=== PATIENT | female | born 1990 | race Caucasian/White ===

== ENCOUNTER → 2021-01-28 09:05 | Outpatient (BNVA) | payer MEDICAID, SELFPAY | PROVIDERS: Family Provider Family Medicine; PCP Family Medicine; Visit Provider Nurse Practitioner Women's Health | DX: N92.6 Irregular menstruation, unspecified (principal) | CPT/HCPCS: 81025 ==

== ENCOUNTER → 2021-02-25 15:26 | Outpatient (BNVA) | payer MEDICAID, SELFPAY | PROVIDERS: Family Provider Family Medicine; PCP Family Medicine; Visit Provider Obstetrics & Gynecology | DX: Z34.01 Encounter for supervision of normal first pregnancy, first trimester | CPT/HCPCS: 80307; 81000; 84443; 85027; 86592; 86762; 86803; 86850; 86900; 87086; 87340 ==

== ENCOUNTER → 2021-03-04 09:13 | Outpatient (BNVA) | payer MEDICAID, SELFPAY | PROVIDERS: Family Provider Family Medicine; PCP Family Medicine; Visit Provider Obstetrics & Gynecology | DX: Z34.80 Encounter for supervision of other normal pregnancy, unspecified trimester (principal) | CPT/HCPCS: 81000; 87491; 87591; 88175 ==

== ENCOUNTER → 2021-04-10 10:50 | Outpatient (BNVA) | payer MEDICAID, SELFPAY | PROVIDERS: Family Provider Family Medicine; PCP Family Medicine; Visit Provider Nurse Practitioner Women's Health | DX: Z34.80 Encounter for supervision of other normal pregnancy, unspecified trimester (principal) | CPT/HCPCS: 81000 ==

== ENCOUNTER → 2021-05-06 09:01 | Outpatient (BNVA) | payer MEDICAID, SELFPAY | PROVIDERS: Family Provider Family Medicine; PCP Family Medicine; Visit Provider Obstetrics & Gynecology | DX: Z34.80 Encounter for supervision of other normal pregnancy, unspecified trimester (principal) | CPT/HCPCS: 81000 ==

== ENCOUNTER → 2021-05-27 13:13 | Outpatient (BNVA) | payer MEDICAID, SELFPAY | PROVIDERS: Family Provider Family Medicine; PCP Family Medicine; Visit Provider Nurse Practitioner Women's Health | DX: Z34.01 Encounter for supervision of normal first pregnancy, first trimester (principal) | CPT/HCPCS: 81000 ==

== ENCOUNTER → 2021-06-24 13:02 | Outpatient (BNVA) | payer MEDICAID, SELFPAY | PROVIDERS: Family Provider Family Medicine; PCP Family Medicine; Visit Provider Obstetrics & Gynecology | DX: Z34.01 Encounter for supervision of normal first pregnancy, first trimester (principal) | CPT/HCPCS: 81000; 82950; 85027 ==

== ENCOUNTER → 2021-07-08 12:06 | Outpatient (BNVA) | payer MEDICAID, SELFPAY | PROVIDERS: Family Provider Family Medicine; PCP Family Medicine; Visit Provider Obstetrics & Gynecology | DX: Z34.80 Encounter for supervision of other normal pregnancy, unspecified trimester (principal) | CPT/HCPCS: 81000 ==

== ENCOUNTER → 2021-07-22 09:58 | Outpatient (BNVA) | payer MEDICAID, SELFPAY | PROVIDERS: Family Provider Family Medicine; PCP Family Medicine; Visit Provider Obstetrics & Gynecology | DX: Z34.90 Encounter for supervision of normal pregnancy, unspecified, unspecified trimester (principal) | CPT/HCPCS: 81000 ==

== ENCOUNTER → 2021-08-05 11:25 | Outpatient (BNVA) | payer MEDICAID, SELFPAY | PROVIDERS: Family Provider Family Medicine; PCP Family Medicine; Visit Provider Nurse Practitioner Women's Health | DX: Z34.90 Encounter for supervision of normal pregnancy, unspecified, unspecified trimester (principal) | CPT/HCPCS: 81000 ==

== ENCOUNTER → 2021-08-19 13:19 | Outpatient (BNVA) | payer MEDICAID, SELFPAY | PROVIDERS: Family Provider Family Medicine; Visit Provider Obstetrics & Gynecology | DX: Z34.90 Encounter for supervision of normal pregnancy, unspecified, unspecified trimester (principal) | CPT/HCPCS: 81000; 85027; 87081 ==

== ENCOUNTER → 2021-08-26 11:45 | Outpatient (BNVA) | payer MEDICAID, SELFPAY | PROVIDERS: Visit Provider Obstetrics & Gynecology | DX: Z34.90 Encounter for supervision of normal pregnancy, unspecified, unspecified trimester (principal) | CPT/HCPCS: 81000 ==

== ENCOUNTER 2021-08-29 11:00 | Inpatient (IN) | payer MEDICAID, SELFPAY ==
[2021-08-29] VITALS (62 sets, daily range): BP systolic 96–159; BP diastolic 53–85; PULSE 69–125; RESP 16–18; TEMP 36.1–36.8; O2SAT 92–100; BMI 21.8
[2021-08-29 11:32] LABS: Actim Prom Positive
--- NOTE | 2021-08-29 11:40 | PM.OPHPUD ---
Labor & Delivery H&P Update Date of Procedure: August 29, 2021 Date H&P Performed: 08/26/21 H&P update information: I have reviewed H&P completed within last 30 days, I have examined patient prior to procedure and Changes to prior documentation as noted here Changes to previous documentation: The patient presents with comlaints of SROM at 0545 this am. Cervix is now 360/-3 Admission Diagnosis:
[2021-08-29 12:08] LABS: Basophils % 0.4 %; Eosinophils % 0.1 %; Hematocrit 37.4 % (37.0-47.0); Hemoglobin 12.5 g/dL (11.5-15.3); Lymphocytes # 1.5 10^3/uL (0.8-4.8); Lymphocytes % 21.8 %; Mean Corpuscular HGB Conc 33.4 g/dL (30.0-36.0); Mean Corpuscular Hemoglobin 31.3 pg (28.0-34.0); Mean Corpuscular Volume 93.5 fl (81-99); Mean Platelet Volume 10.6 fL (7.4-10.4); Monocytes # 0.4 10^3/uL (0.2-0.9); Monocytes % 5.8 %; Neutrophils # 4.95 10^3/uL (1.8-7.7); Neutrophils % 71.5 %; Nucleated Red Blood Cells % 0 %; Platelet Count 236 10^3/cmm (130-400); White Blood Count 6.9 10^3/uL (4.0-10.0)
[2021-08-29] MEDS: oxytocin 30 UNIT/500 ML BAG IV (13:59)
[2021-08-29] MEDS: dextrose 5%-lactated ringers 1,000 ML 125 ML IV (14:00)
--- NOTE | 2021-08-29 14:12 | PM.OPHPUD ---
Labor & Delivery H&P Update Date of Procedure: August 29, 2021 Date H&P Performed: 08/26/21 Admission Diagnosis: Related Problem List Diagnoses (1) Refusal of blood transfusions as patient is Cheondoism: (2) Supervision of normal : (3) Anxiety: (4) PROM (premature rupture of membranes):
[2021-08-29] MEDS: lactated ringers 1,000 ML 999 ML IV (15:56)
--- NOTE | 2021-08-29 16:12 | ANES.PREANE2 ---
Pre-Anesthetic Assessment Height/Weight: Height 1.63 m Weight 57.606 kg Temp Pulse Resp BP Pulse Ox 97.9 F 93 16 106/66 97 08/29/21 14:27 08/29/21 16:07 08/29/21 11:06 08/29/21 16:07 08/29/21 16:06 Familial anesthetic complications: None Was Beta Nancy taken within 24 hours: N/A Was Clonidine taken within 24 hours: N/A Social No alcohol and No tobacco Exam alert, oriented x 3, clear to auscultation bilaterally and regular rate & rhythm Airway Submandibular: within normal limits Cervical ROM: within normal limits Mallampati: Class II Dentition: full History/ROS No significant history except as noted Neuropsych Anxiety Anesthetic Plan ASA status: 2 Anesthesia: Regional (specify below) (Labor epidural) Other Pertinent Information Uatsdin Medications/Allergies Home Medications Medication Instructions Recorded Confirmed Last Taken Type omega-3 acid ethyl esters 1 gram 2 cap PO DAILY cap 02/25/21 08/26/21 Unknown History capsule prenat.vits,jama,[id number] 1 tab PO DAILY 02/25/21 08/26/21 Unknown History ascorbic acid (vitamin C) 500 mg mg PO 05/27/21 08/26/21 Unknown History capsule cholecalciferol (vitamin D3) 10 10 mcg PO DAILY 05/27/21 08/26/21 Unknown History mcg (400 unit) capsule folic acid 0.8 mg capsule 0.8 mg PO DAILY 05/27/21 08/26/21 Unknown History escitalopram oxalate 10 mg tablet 10 mg PO DAILY #90 tab 06/24/21 08/26/21 Unknown Rx Allergies Allergy/AdvReac Type Severity Reaction Status Date / Time No Known Allergies Allergy Verified 08/26/21 12:26 Current Medications Generic Name Dose Route Start Last Admin Trade Name Freq PRN Reason Stop Dose Admin Dextrose/Lactated Ringer's 1,000 mls @ 125 mls/hr 08/29/21 11:15 08/29/21 14:00 Dextrose 5%-Lactated Ringers IV 125 mls/hr .Q8H TAMIKA Administration Oxytocin 30 unit in 500 mls @ 1 mls/hr 08/29/21 13:45 08/29/21 15:13 Pitocin IV 7 milliunit/min .Q24H TAMIKA 7 mls/hr Titration Protocol 1 MILLIUNIT/MIN Ropivacaine 200 mg in 100 mls @ 6 mls/hr 08/29/21 15:15 08/29/21 15:56 Naropin Premix EPIDURAL 13 mls/hr .[id number] TAMIKA Administration Lactated Ringer's 1,000 mls @ 999 mls/hr 08/29/21 15:18 08/29/21 15:56 Lactated Ringers IV 999 mls/hr .Q1H1M PRN Administration See label comments PFSH Anesthesia Medical History Anxiety Diagnosed in 2017 and is managed by her primary care provider. She does not have a therapist or a psychiatrist Endometriosis Diagnosed in 2015 at time of laparoscopy in [facility]. Has not been on any hormones since then and states that she is asymptomatic. No pertinent past medical history Denies diabetes, asthma, hypertension, seizures, DVT/PE PCP: Dr. Botello in [place] [facility] Refusal of blood transfusions as patient is Uatsdin Patient is a Uatsdin and refuses blood products---whole blood PRBCs plasma and platelets. ----> She thinks she will accept albumin and fibrinogen but needs to look it up. Surgical History Hx of appendectomy (~2015) 12/27/2015-laparoscopic appendectomy performed at time of right salpingo-oophorectomy. Pathology showed no diagnostic abnormality of the appendix Hx of laparoscopy (~2015) 12/27/2015----> laparoscopic right salpingo-oophorectomy and appendectomy for right ovarian endometrioma performed by Dr. Jordon Diaz in [facility]. Pathology of the ovary showing hemorrhagic ovarian cyst consistent with endometriosis with a benign fallopian tube with a paratubal cyst. Converted to laparotomy. (scanned) Family History Grandmother Heart disease Maternal Grandfather Heart disease Paternal Mother Hypertension Sister Thyroid disease Denies family history of Colon cancer Ovarian cancer Diabetes Hypercholesteremia Breast cancer Uterine cancer Stroke Female Reproductive History : 1 Data Anesthesia : 08/29/21 11:50 Short CBC 08/29/21 Range/Units 11:50 WBC 6.9 (4.0-10.0) 10^3/uL Hgb 12.5 (11.5-15.3) g/dL Hct 37.4 (37.0-47.0) % MCV 93.5 (81-99) fl Plt Count 236 (130-400) 10^3/cmm Neut % (Auto) 71.5 % Neut # (Auto) 4.95 (1.8-7.7) 10^3/uL Cardiac Studies: No Data to Display
--- NOTE | 2021-08-29 16:13 | ANES.PROC ---
Anesthesia Procedures Procedure/Date: 08/29/21 Epidural: Time Out Performed: Yes Consents Signed: Procedure Consent Consent: requested by attending/covering physician, from patient, risks and benefits reviewed and patient agrees to proceed Lumbar Level: L3-L4 Epidural position: sitting Epidural procedure: sterile prep of area, 1% lidocaine to numb the area, 18 g needle, neg for paresthesia, test dose given, placed PCEA, no systemic response, sterile dressing applied and 0.2% Ropiavacaine @ mls/hr (13) Additional Comments: SALENA at 4cm, cath at 9cm, bolused 5mls of 2% lido PF
--- NOTE | 2021-08-29 22:15 | P.PCNOB_ITS ---
Delivery Note: Date of delivery: August 29, 2021 Pre-delivery diagnoses: PROM, IUP@37 weeks, 1 day Post-delivery diagnoses: same Procedure: VAVD Delivering Physician: Dr. Hernandez Estimated blood loss (mL): 200 Findings: term male in the AKASH presentation with a compound left hand Pre-Delivery Course: The patient was admitted for augmentation of labor. she received an epidural for pain control. She had complete cervical dilation and began pushing Delivery: The patient had complete cervical dilation and began to push. She was having deep decelerations and the baby was in the ROP presentation. She was very tired and not pushing well. I applied the vacuum to see if I could rotate the vertex. The Kiwi vacuum was pumped to the green zone. The vacuum was used for one minute and there was the first popoff. I applied it again with the next contraction for 1 minute and released it when the contraction ended. The next contraction, I used the vacuum again and there was a pop off after 1 minute. The baby was still in the ROP presentation with a compound hand near the ear. I allowed the mother to continue to push. The strip looked much better after the vacuum was used and the deep decelerations with contractions ceased. Many position changes were used to help try to rotate the baby. Finally, the head had a small crown and the heart rate dropped to the 60's. I placed the vacuum and delivered the head. The time of placement was again 1 minute. The head delivered in the AKASH position over an intact perineum under epidural anesthesia with a compound left hand. The nose and mouth were bulb suctioned. The shoulders and body delivered atraumatically. The baby was placed onto the mother's abdomen. The cord was clamped and cut. The placenta delivered spontaneously. It was inspected and found to be intact. Inspection of the perineum revealed a second-degree lacerat ion which was repaired in the usual fashion. A rectal exam was performed to ensure there was no rectal involvement. Estimated blood loss 200 mL. Apgars on baby were 9 at 1 minute and 9 at 5 minutes. Weight of baby is 6 pounds 11 ounces. Mother and baby were stable post delivery. History History History 1 Term Miscarriages/Ectopic Living Children Coding Level of Care Code Acute Court Deputy for [facility] Fwd
[2021-08-30] VITALS (17 sets, daily range): BP systolic 89–117; BP diastolic 52–76; PULSE 64–100; RESP 16; TEMP 36.8–36.9
[2021-08-30] MEDS: HYDROcodone-acetaminophen 5-325 mg Tablet PO (00:02)
--- NOTE | 2021-08-30 00:59 | PC.NURSE ---
kiwi placed on at 2042 pop off after 20 sec kiwi replaced at 2043 released after 30 sec kiwi replaced at 2044:26 and popped off at 2044:55 kiwi replaced at 2153:50 released at 2155 at delivery of infant
[2021-08-30] MEDS: lanolin oint 7 gm 1 APPLIC TOPICAL (06:09)
[2021-08-30] MEDS: benzocaine-menthol 78 gm Canister 1 SPRAY TOPICAL (06:09)
--- NOTE | 2021-08-30 08:26 | ANE.PACU2 ---
Inpatient post-anesthesia follow up: Airway intact: Yes Vital signs: Temperature 98.4 F Pulse Rate 86 Respiratory Rate 18 Blood Pressure 109/64 Pulse Oximetry 99 Oxygen Delivery Me thod Room Air Oxygen Flow Rate Fraction of Inspir ed Oxygen Hydration adequate: Yes Nausea and vomiting: No Pain level: 2 Mental status: Baseline
[2021-08-30] MEDS: prenatal vitamin Capsule 1 CAP PO (09:20)
[2021-08-30] MEDS: ibuprofen 800 mg tablet PO ×3 (09:20→20:37)
[2021-08-30] MEDS: docusate sodium 100 mg Capsule PO ×2 (09:20→18:01)
[2021-08-30 10:55] LABS: Hematocrit 26.6 % (37.0-47.0); Hemoglobin 8.8 g/dL (11.5-15.3); Mean Corpuscular HGB Conc 33.1 g/dL (30.0-36.0); Mean Corpuscular Hemoglobin 31.8 pg (28.0-34.0); Mean Platelet Volume 10.8 fL (7.4-10.4); Platelet Count 195 10^3/cmm (130-400); Red Blood Count 2.77 10^6/uL (4.1-5.3); Red Cell Distribution Width 13.2 % (12.1-15.1); White Blood Count 10.5 10^3/uL (4.0-10.0)
--- NOTE | 2021-08-30 16:15 | P.PN_ITS ---
Vitals/I&O/Wt Last Vital Signs Temp 98.4 F 08/30/21 04:07 Pulse 86 08/30/21 08:15 Resp 18 08/29/21 22:15 BP 109/64 08/30/21 08:15 Pulse Ox 99 08/29/21 16:31 08/30/21 08/30/21 08/30/21 06:59 14:59 22:59 Intake Total 1141.834 / 1600.000 Output Total 200 / 400 Balance 941.834 / 1200.000 Weight last 48 hrs Weight 127 lb Physical Exam Narrative: The patient is doing well today. No concerns. She is keeping ice on her bottom Const: COMMON NORMALS: no acute distress, average body habitus, patient oriented x3, no limitations, healthy appearing, alert and well nourished GENERAL APPEARANCE: cooperative, comfortable, well kempt and well developed ORIENTATION/CONSCIOUSNESS: Yes awake, Yes oriented to person, Yes oriented to place and Yes oriented to time Resp: COMMON NORMALS: normal respiratory effort EFFORT & INSPECTION: Yes able to speak in complete sentences GI: COMMON NORMALS: Soft to palpation and non-tender PALPATION: Yes Soft to palpation Extremity: COMMON NORMALS: no calf tenderness Neuro: COMMON NORMALS: patient oriented x3 SENSORIUM/ORIENTATION: Yes alert, Yes oriented to person, Yes oriented to place and Yes oriented to time Psych: COMMON NORMALS: mental status grossly normal, Normal thought process present, cooperative, normal affect and speech normal APPEARANCE: Yes grossly normal and Yes well kempt ATTITUDE: Yes calm and Yes engaged ACTIVITY/M OTOR BEHAVIOR: Yes appropriate eye contact SPEECH: Yes normal speech THOUGHT PROCESS: Normal thought process present Urinary Catheter Management: Bernal: Cath Placed During This Visit: yes, but has since been removed by the nurse Reason for Continuing Indwelling Catheter: Other Urinary Catheter Date of Insertion: 08/29/21 Urinary Catheter Time of Insertion: 16:15 Date Urinary Catheter Removed: 08/29/21 Time Urinary Catheter Discontinued: 19:00 Data : 08/30/21 10:40 Attestations Medical Necessity Statement*: She will be here 2 midnights. Coding Level of Care Code Acute General Production Laborer for Shawna Knight
[2021-08-31 04:30] VITALS: BP 102/68; PULSE 71; RESP 16
[2021-08-31 09:00] VITALS: BP 103/68; PULSE 94; RESP 18; TEMP 36.6
[2021-08-31] MEDS: ibuprofen 800 mg tablet PO (09:16)
[2021-08-31] MEDS: docusate sodium 100 mg Capsule PO (09:17)
[2021-08-31] MEDS: prenatal vitamin Capsule 1 CAP PO (09:17)
--- NOTE | 2021-08-31 10:39 | P.DS_ITS ---
Discharge Providers Date of Admission: 08/29/21 11:00 Date of Discharge: August 31, 2021 Attending Provider at Admission: Lea Hernandez MD Attending Provider at Discharge: Lea Hernandez MD Diagnoses at Discharge Discharge Diagnosis (1) Refusal of blood transfusions as patient is Presybeterian: Status: Acute Permanent problem details: Patient is a Presybeterian and refuses blood products---whole blood PRBCs plasma and platelets. ----> She thinks she will accept albumin and fibrinogen but needs to look it up. (2) Supervision of normal : Status: Acute Qualifiers: Normal : normal first Trimester: third trimester Qualified Code(s): Z34.03 - Encounter for supervision of normal first , third trimester (3) Anxiety: Status: Acute Permanent problem details: Diagnosed in 2017 and is managed by her primary care provider. She does not have a therapist or a psychiatrist (4) PROM (premature rupture of membranes): Status: Acute Reason for Visit Reason for Visit: POSSIBLE RUPTURE OF MEMBRANES Hospital Course Hospital Course The patient was admitted with PROM. She had pitocin augmentation and had spontaneous delivery of a term male . She did well and was ready for discharge on day #2 Physical Exam Narrative: doing well this morning. Const: COMMON NORMALS: no acute distress, average body habitus, patient oriented x3, no limitations, healthy appearing, alert and well nourished GENERAL APPEARANCE: cooperative, comfortable, well kempt and well developed ORIENTATION/CONSCIOUSNESS: Yes awake, Yes oriented to person, Yes oriented to place and Yes oriented to time Resp: COMMON NORMALS: normal respiratory effort EFFORT & INSPECTION: Yes able to speak in complete sentences GI: COMMON NORMALS: Soft to palpation and non-tender PALPATION: Yes Soft to palpation Extremity: COMMON NORMALS: no calf tenderness Neuro: COMMON NORMALS: patient oriented x3 SENSORIUM/ORIENTATION: Yes alert, Yes oriented to person, Yes oriented to place and Yes oriented to time Psych: APPEARANCE: Yes well kempt Urinary Catheter Management: Bernal: Cath Placed During This Visit: yes, but has since been removed by the nurse Reason for Continuing Indwelling Catheter: Other Urinary Catheter Date of Insertion: 08/29/21 Urinary Catheter Time of Insertion: 16:15 Date Urinary Catheter Removed: 08/29/21 Time Urinary Catheter Discontinued: 19:00 Discharge Data Studies Completed and Pending Laboratory Results WBC 10.5 10^3/uL (4.0-10.0) H 08/30/21 10:40 RBC 2.77 10^6/uL (4.1-5.3) L 08/30/21 10:40 Hgb 8.8 g/dL (11.5-15.3) L 08/30/21 10:40 Hct 26.6 % (37.0-47.0) L 08/30/21 10:40 MCV 96.0 fl (81-99) 08/30/21 10:40 MCH 31.8 pg (28.0-34.0) 08/30/21 10:40 MCHC 33.1 g/dL (30.0-36.0) 08/30/21 10:40 RDW 13.2 % (12.1-15.1) 08/30/21 10:40 Plt Count 195 10^3/cmm (130-400) 08/30/21 10:40 MPV 10.8 fL (7.4-10.4) H 08/30/21 10:40 Neut % (Auto) 71.5 % 08/29/21 11:50 Lymph % (Auto) 21.8 % 08/29/21 11:50 [place] % (Auto) 5.8 % 08/29/21 11:50 Eos % (Auto) 0.1 % 08/29/21 11:50 Baso % (Auto) 0.4 % 08/29/21 11:50 Neut # (Auto) 4.95 10^3/uL (1.8-7.7) 08/29/21 11:50 Lymph # (Auto) 1.5 10^3/uL (0.8-4.8) 08/29/21 11:50 [place] # (Auto) 0.4 10^3/uL (0.2-0.9) 08/29/21 11:50 Eos # (Auto) 0.0 10^3/uL (0.0-0.8) 08/29/21 11:50 Baso # (Auto) 0.0 10^3/uL (0.0-0.1) 08/29/21 11:50 Nucleated RBC % (auto) 0 % 08/29/21 11:50 Nucleated RBCs # 0.0 /100WBC 08/29/21 11:50 Insulin-like GF I Positive 08/29/21 10:50 Vitals Last Vital Signs Temp 97.8 F 08/31/21 09:00 Pulse 94 08/31/21 09:00 Resp 18 08/31/21 09:00 BP 103/68 08/31/21 09:00 Pulse Ox 99 08/29/21 16:31 Discharge Plan Discharge Patient Disposition: Home Condition: Stable Prescriptions: Continued prenat.vits,jama,[id number] Tablet 1 tab PO DAILY 0RF escitalopram oxalate 10 mg tablet 10 mg PO DAILY Qty: 90 0RF Discharge Orders: Discharge Order (Routine); Ordered 08/31/21 Ordered By: Lea Hernandez Referrals: Anamaria Fam MD [Physician] - 6 Weeks (Call Dr. Combs's office Wednesday morning to schedule a 6 week appointment. ) Caity Sapp DO [Physician] - 4-7 days (Call wednesday morning and set up an appointment for baby this week with Dr. Sapp. ) Patient Instructions: Depression (DC), Bleeding (DC), Preeclampsia and Eclampsia After Delivery (GEN), COVID-19 and (GEN), OB Discharge Report, OB Food/Drug Interaction Guide, Opioid Safety, OB Home Care, OB Vaginal Deliveries - [facility], Abnormal Bleeding Discharge Attestations Time Spent in Discharge Care*: less than 30 min Quality Metrics Clinical Quality Measures [ No reported AMI, CVA or VTE this stay] Coding Level of Care Code Acute Chg FW DC note Diagnoses Refusal of blood transfusions as patient is Presybeterian Z53.1 Supervision of normal Z34.03 Normal : normal first Trimester: third trimester Anxiety F41.9 PROM (premature rupture of membranes) O42.90
[2021-08-31 11:00] VITALS: BP 108/60; PULSE 89; RESP 18; TEMP 36.6
== END 2021-08-31 11:20 | disposition home or self-care (01) | DRG 807 ==
LOC: OPOB 13:44 → OBGYN 13:44
PROVIDERS: Absent Provider Obstetrics & Gynecology; Admitting Provider Obstetrics & Gynecology; Visit Provider Obstetrics & Gynecology
DX: O76 Abnormality in fetal heart rate and rhythm complicating labor and delivery (principal); Z37.0 Single live birth; O99.344 Other mental disorders complicating childbirth; F41.9 Anxiety disorder, unspecified; O70.1 Second degree perineal laceration during delivery; Z3A.37 37 weeks gestation of pregnancy
CPT/HCPCS: 36415; 51702; 59025; 59409; 84112; 85025; 85027; 99211; J2795